=== PATIENT | female | born 1940 | race Caucasian/White ===

== ENCOUNTER 2016-06-06 00:24 | Emergency (ER) | payer MEDICARE, MEDICAID ==
[~2016-06-06] VITALS: Ht 163.8 cm; Wt 84.5 kg
[~2016-06-06 00:24] MED LIST: FENO145T19 PO; FLUT12AE6 INHALATION; KLO1T PO; LAMO100T2 PO; LEVO50TA6 PO; METO-274 PO; PANT20TA2 PO; RISP1TAB90 PO; RISP2TAB21 PO; TIOT4MIS2 INHALATION; TRIA10.8 NS; WARF3TAB7 PO
[2016-06-06 00:41] VITALS: BP 137/83; PULSE 97; RESP 16; O2SAT 96
--- NOTE | 2016-06-06 02:15 | ED.REPORT ---
HPI-General Illness Date of Service Jun 06, 2016 ED Provider: Gonzalez Eduardo MD This is a 75 year old female with a history of tardive dyskinesia, atrial fibrillation on warfarin, CKD stage III, osteoarthritis, HTN, asthma, thyroid disease, and lichenoid mucositis presenting to the emergency department due to difficulty swallowing that began four hours ago upon awakening. Pt woke up from sleep with dry mouth and tongue which impaired her ability to swallow. This improved after drinking water. Pt diagnosed with tardive dyskinesia in 01/2016. Denies shortness of breath, fever, chills, tongue swelling, throat swelling, nausea, or vomiting at this time. She had similar presentation 2 days ago. Nursing Notes Stated Complaint: TROUBLE SWALLOWING Chief Complaint: General Complaint Nursing Notes Reviewed: Yes Allergies: Coded Allergies: Penicillins (Verified Allergy, Severe, HIVES,SWELLING, 11/09/15) amoxicillin (Verified Allergy, Severe, HIVES,SWELLING, 11/09/15) azithromycin (Verified Allergy, Severe, HIVES,SWELLING, 11/09/15) atorvastatin (Verified Allergy, Unknown, UNKNOWN, 11/09/15) enalapril (Verified Allergy, Unknown, UNKNOWN, 11/07/15) naproxen (Verified Allergy, Unknown, 11/07/15) ibuprofen (Verified Adverse Reaction, Severe, RENAL INSUFFICIENCY, 11/07/15 ) Scheduled Benztropine Mesylate (Benztropine Mesylate) 1 Mg Tablet 1 MG PO BID Clonazepam (Clonazepam) 1 Mg Tablet 1 MG PO HS Fenofibrate Nanocrystallized (Fenofibrate) 145 Mg Tablet 145 MG PO DAILY Fluticasone/Salmeterol (Advair Hfa 230-21 Mcg Inhaler) 12 Gm Hfa.aer.ad 2 PUFFS INHALATION BID Lamotrigine (Lamotrigine) 100 Mg Tablet 150 MG PO QAM Lamotrigine (Lamotrigine) 100 Mg Tablet 100 MG PO QPM Levothyroxine (Levothyroxine) 50 Mcg Tablet 50 MCG PO DAILY Metoprolol Succinate ER (Metoprolol Succinate ER) 100 Mg Tab.er.24h 200 MG PO QAM Metoprolol Succinate ER (Metoprolol Succinate ER) 100 Mg Tab.er.24h 100 MG PO HS Pantoprazole DR (Pantoprazole DR) 20 Mg Tablet.dr 20 MG PO BID Risperidone (Risperdal) 1 Mg Tablet 1 MG PO MORNING Risperidone (Risperdal) 2 Mg Tablet 4 MG PO HS Tiotropium [place] (Spiriva Respimat) 4 Gm Mist.inhal 2 PUFFS INHALATION QAM Triamcinolone Acetonide (Nasacort) 10.8 Ml [place] 1 SPRAY NS HS Warfarin Sodium (Warfarin Sodium) 3 Mg Tablet 4.5 MG PO DAILY General Time Seen by MD: 01:58 Chief Complaint Other Hx Obtained From: Patient Arrived By: Walk-in Sudden in Onset?: Yes Onset Occurred: 1 - 4 hours ago Symptom Duration: Since onset Severity: Current: No pain currently Pertinent Negative: Pt denies other symptoms Recent Healthcare: No recent doctor visit, No recent hospitalization Similar Sx Previous: No Past Medical History Past Medical History Notes: 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 Physical Exam Vital Signs Vital Signs Date Time Temp Pulse Resp B/P Pulse Ox O2 Delivery O2 Flow Rate FiO2 06/06/16 05:01 35.6 97 16 137/83 96 06/06/16 00:41 35.6 97 16 137/83 96 Initial VS: Reviewed, Vital signs normal General/Constitutional: Well-developed, Well-nourished Head / Eyes: Atraumatic, Normocephalic, PERRL ENT: Mucous membranes moist, Conjunctiva normal, No scleral icterus Neck: Supple, Non-tender, Full range of motion Respiratory: Breath sounds normal, Clear to auscultation, No respiratory distress Cardiovascular: Regular rate & rhythm, Heart sounds normal, Intact distal pulses Abdomen / GI: Soft, Non-tender, No guarding, No rebound, No distention Extremities: Vascular intact, Neuro intact, No swelling, No tenderness Skin: Warm, Dry, No cyanosis Neurologic: Alert, Oriented, Nonfocal Psychiatric: Mood/affect normal, Behavior normal, Normal thought content Interpretation & Diagnostics Lab Results Interpretation Test 06/06/16 03:35 Hold Urine Received (Received) Re-Eval/Medical Decision Med Decision/Clinical Course 75-year-old female with a history of bipolar illness presents with tongue movements. She is unable to control these. They interfere with her sleep and make her tongue sore. These may be related to her psychiatric medications. She was given a dose of Cogentin 1 mg with good resolution of her symptoms. She will be given a prescription for the Cogentin last 3 to her next visit. Counseled Regarding: Diagnosis, Lab results, Need for follow-up, When/why to return to ED Discharge & Departure Primary Impression: Dystonic drug reaction Disposition: Home Discharge Condition All VS Reviewed: Yes Condition: Stable Additional Instructions: Benztropine (Cogentin) 1 mg once or twice daily as needed for symptoms. Talk to your regular doctor about further medication management. Referrals: Rajinder Cook DO (PCP) Scribe Attestation Portions of this note were transcribed by Dayan Ness. I, Dr. Eduardo personally performed the history, physical exam and medical decision-making; I reviewed and confirmed the accuracy of the information in the transcribed note. Signed by: martha Melendez. 06/05/2016, 06:00. Gonzalez Eduardo MD Jun 06, 2016 02:15 DAYAN NESS Jun 06, 2016 02:18
[2016-06-06] MEDS ORDERED: BENZ1TAB7 PO (04:55)
[2016-06-06 05:01] VITALS: BP 137/83; PULSE 97; RESP 16; O2SAT 96
== END 2016-06-06 05:04 | disposition home or self-care (01) ==
LOC: SED 00:24
DX: G24.02 Drug induced acute dystonia (principal); R68.2 Dry mouth, unspecified; K14.8 Other diseases of tongue; T43.95XA Adverse effect of unspecified psychotropic drug, initial encounter; Y93.89 Activity, other specified; Y92.89 Other specified places as the place of occurrence of the external cause; Y99.8 Other external cause status; I13.10 Hypertensive heart and chronic kidney disease without heart failure, with stage 1 through stage 4 chronic kidney disease, or unspecified chronic kidney disease; I48.91 Unspecified atrial fibrillation; N18.3 Chronic kidney disease, stage 3 (moderate); J45.909 Unspecified asthma, uncomplicated; E03.9 Hypothyroidism, unspecified; Z79.01 Long term (current) use of anticoagulants; Z88.0 Allergy status to penicillin; Z88.1 Allergy status to other antibiotic agents

== ENCOUNTER 2016-09-12 19:38 | Emergency (ER) | payer MEDICARE, MEDICAID ==
[~2016-09-12] VITALS: Ht 162.6 cm; Wt 89.1 kg
[~2016-09-12 19:38] MED LIST changes: +BENZ1TAB7 PO
[2016-09-12 19:40] VITALS: BP 185/86; RESP 20; O2SAT 99
--- NOTE | 2016-09-12 21:04 | ED.REPORT ---
HPI-Facial Injury Date of Service Sep 12, 2016 ED Provider: Diego Harry MD A 76 year old female with a history of tardive dyskinesia, atrial fibrillation on Warfarin, CKD stage III and hypertension presents to the ED due to bleeding from wound on her tongue. The pt bit her tongue during dinner and has been bleeding since, reporting that she has "gone through four washcloths." The pt checked her INR yesterday, which was 4.3. The pt is presently on doxycycline and prednisone for a mild asthma exacerbation that she has been experiencing since 08/27/2016. Nursing Notes Stated Complaint: BIT TONGUE Chief Complaint: ENT & Mouth Nursing Notes Reviewed: Yes ([facility], meds not reconciled - on warfarin) Allergies: Coded Allergies: Penicillins (Verified Allergy, Severe, HIVES,SWELLING, 09/12/16) amoxicillin (Verified Allergy, Severe, HIVES,SWELLING, 09/12/16) azithromycin (Verified Allergy, Severe, HIVES,SWELLING, 09/12/16) atorvastatin (Verified Allergy, Unknown, UNKNOWN, 09/12/16) enalapril (Verified Allergy, Unknown, UNKNOWN, 09/12/16) naproxen (Verified Allergy, Unknown, 09/12/16) risperidone (Verified Allergy, Unknown, 09/12/16) ibuprofen (Verified Adverse Reaction, Severe, RENAL INSUFFICIENCY, 09/12/16 ) Scheduled Benztropine Mesylate (Benztropine Mesylate) 1 Mg Tablet 1 MG PO BID Clonazepam (Clonazepam) 1 Mg Tablet 1 MG PO HS Fenofibrate Nanocrystallized (Fenofibrate) 145 Mg Tablet 145 MG PO DAILY Fluticasone/Salmeterol (Advair Hfa 230-21 Mcg Inhaler) 12 Gm Hfa.aer.ad 2 PUFFS INHALATION BID Lamotrigine (Lamotrigine) 100 Mg Tablet 150 MG PO QAM Lamotrigine (Lamotrigine) 100 Mg Tablet 100 MG PO QPM Levothyroxine (Levothyroxine) 50 Mcg Tablet 50 MCG PO DAILY Metoprolol Succinate ER (Metoprolol Succinate ER) 100 Mg Tab.er.24h 200 MG PO QAM Metoprolol Succinate ER (Metoprolol Succinate ER) 100 Mg Tab.er.24h 100 MG PO HS Pantoprazole DR (Pantoprazole DR) 20 Mg Tablet.dr 20 MG PO BID Risperidone (Risperdal) 1 Mg Tablet 1 MG PO MORNING Risperidone (Risperdal) 2 Mg Tablet 4 MG PO HS Tiotropium [place] (Spiriva Respimat) 4 Gm Mist.inhal 2 PUFFS INHALATION QAM Triamcinolone Acetonide (Nasacort) 10.8 Ml [place] 1 SPRAY NS HS Warfarin Sodium (Warfarin Sodium) 3 Mg Tablet 4.5 MG PO DAILY General Time Seen by Provider: 21:01 Chief Complaint Bleeding Hx Obtained From: Patient Arrived By: Walk-in Onset Occurred: 1 - 4 hours ago Symptom Duration: Since onset Recent Healthcare: No recent hospitalization, Recent doctor visit Similar Sx Previous: No Past Medical History Past Medical History Notes: 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 Respiratory: Denies: Non-productive cough, Shortness of breath Cardiovascular: Denies: Chest pain GI: Denies: Abdominal pain Physical Exam Initial Vital Signs Vital Signs (First) Date Time Temp Pulse Resp B/P Pulse Ox O2 Delivery O2 Flow Rate FiO2 09/12/16 19:40 36.0 92 20 185/86 99 Room Air Initial VS: Reviewed, Vital signs normal Head / Eyes: Atraumatic, Normocephalic, PERRL, EOMI ENT: Airway patent, Mucous membranes moist small 1 mm wound on the anterior surface of the tongue, continuously oozing blood no laceration or airway compromise Neck: Atraumatic, Supple, Full range of motion Neurologic: Oriented X3, Speech NL, No motor deficits, No sensory deficits General/Constitutional: Awake, Alert Respiratory / Chest: Atraumatic, Breath sounds = bilat, No respiratory distress Interpretation & Diagnostics Lab Results Interpretation Result Diagram: 09/12/162119 Test 09/12/16 21:20 White Blood Count 14.1th/mm3 (3.8-10.1) Red Blood Count 3.85mil/mm3 (3.90-5.20) Hemoglobin 11.2g/dL (12.0-15.6) Hematocrit 36.5% (35.0-46.0) Mean Corpuscular Volume 94.8fL (81-100) Mean Corpuscular Hemoglobin 29.1pg (27.0-35.0) Mean Corpuscular Hemoglobin Concent 30.7% (32.0-37.0) Red Cell Distribution Width 16.3% (12.3-15.4) Platelet Count 276bil/L (150-400) Neutrophils (%) (Auto) 79.5% (40-74) Lymphocytes (%) (Auto) 11.6% (14-46) Monocytes (%) (Auto) 7.4% (4-12) Eosinophils (%) (Auto) 0.1% (0-5) Basophils (%) (Auto) 0.1% (0-3) Prothrombin Time 33.3sec (8.1-12.5) Prothromb Time International Ratio 3.04ratio Hold Rai Top Tube Received (Received) Lab Results Interpretation: CBC nonspecific leukocytosis INR therapeutic, down from her reported INR greater than 4 yesterday Re-Eval/Medical Decision Med Decision/Clinical Course This is a 76-year-old female on Coumadin for atrial fibrillation who is tired of dyskinesia and bit her tongue while chewing today, and he could not get the bleeding to stop. She also has a history of some mild asthma exacerbation is on doxycycline which she thinks is what increased her INR-she had a check TSH was elevated greater than 4, so held her Coumadin. She is on albuterol and prednisone. On exam she has a small 1-2 mm wound of the tongue, not requiring repair-but it is oozing continuously. She has mild bronchospasm as well, but not visible distress. She had topical bupivacaine with epinephrine applied initially with inadequate results, and then topical transatlantic acid within administered. An INR recheck demonstrates her INRs come down to 3. Her counts are normal. And her bleeding stopped. She received albuterol. She feels much improved. She is up-to-date on tetanus. I am not finding indication for additional therapy. She was maintained for several hours and remained hemostatic, and so is being discharged in improved condition. Source of Hx: Old records Re-Evaluation/Progress : Time of Eval: 22:43 Patient Status: Condition improved Re-Evaluation/Progress Note: Pt rechecked, whose tongue has stopped bleeding following medication administration. The pt has a mild wheeze and is requesting another albuterol treatment. The diagnosis and plan for discharge are discussed. The pt understands and agrees with the plan. All questions are addressed at this time. Differential Diagnosis: Positive: Laceration, Tongue injury, Negative: Abrasion, Blow out fracture, Burn, 1st degree, Burn, 2nd degree, Burn, 3rd degree, Closed head injury, Epistaxis, anterior, Epistaxis, posterior , Gun shot wound, Septal hematoma, Stab wound Counseled Regarding: Diagnosis, Need for follow-up, When/why to return to ED Discharge & Departure Impression: Primary Impression: Tongue laceration Encounter type: initial encounter Qualified Code: S01.512A - Laceration without foreign body of oral cavity, initial encounter Additional Impressions: Asthma Asthma severity: mild intermittent Asthma complication type: uncomplicated Qualified Code: J45.20 - Mild intermittent asthma, uncomplicated Anticoagulated on Coumadin Disposition: Home Discharge Condition All VS Reviewed: Yes Condition: Stable Additional Instructions: 1. The tongue laceration was small and does not require require repair, but medications to stop the bleeding were administered. The wound should heal on its own. 2. Your INR is down to 3.0 today. 3. Continue your asthma medications. 4. Return if new or worsening symptoms. Referrals: Rajinder oCok DO (PCP) Isaias Attestation Portions of this note were transcribed by Jeannette Ugalde. I, Dr. Harry personally performed the history, physical exam and medical decision-making; I reviewed and confirmed the accuracy of the information in the transcribed note. Signed by: Isaias Patton, 09/12/2016 and 230. copies to: Rajinder Cook Matthew F MD Sep 12, 2016 21:04 JEANNETTE UGALDE Sep 12, 2016 21:12
[2016-09-12] MEDS ORDERED: Tranexamic Acid 100 mg/mL 10 mL Inj TOPICAL ONE (21:10)
[2016-09-12] MEDS ORDERED: Albuterol 2.5 mg/3 mL Inhalation Solution NEB ONE ×2 (21:15→22:45)
[2016-09-12 21:35] LABS: BASOPHILS % (AUTO) 0.1 % (0-3); EOSINOPHILS % (AUTO) 0.1 % (0-5); MONOCYTES % (AUTO) 7.4 % (4-12); Mean Corpuscular Hemoglobin 29.1 pg (27.0-35.0); Mean Corpuscular Volume 94.8 fL (81-100); NEUTROPHILS % (AUTO) 79.5 % (40-74); Platelet Count 276 bil/L (150-400)
[2016-09-12 21:56] LABS: INR 3.04 ratio
[2016-09-12 22:26] VITALS: PULSE 97; RESP 20; O2SAT 97
[2016-09-12 22:46] VITALS: PULSE 100; RESP 18; O2SAT 97
[2016-09-12 23:12] VITALS: BP 136/85; PULSE 93; RESP 20; O2SAT 97
== END 2016-09-12 23:13 | disposition home or self-care (01) ==
LOC: SED 19:38
DX: S01.512A Laceration without foreign body of oral cavity, initial encounter (principal); J45.20 Mild intermittent asthma, uncomplicated; X58.XXXA Exposure to other specified factors, initial encounter; Y93.89 Activity, other specified; Y92.89 Other specified places as the place of occurrence of the external cause; Y99.8 Other external cause status; I13.10 Hypertensive heart and chronic kidney disease without heart failure, with stage 1 through stage 4 chronic kidney disease, or unspecified chronic kidney disease; I48.91 Unspecified atrial fibrillation; N18.3 Chronic kidney disease, stage 3 (moderate); F31.9 Bipolar disorder, unspecified; Z79.01 Long term (current) use of anticoagulants; Z88.0 Allergy status to penicillin; Z88.1 Allergy status to other antibiotic agents; Z88.8 Allergy status to other drugs, medicaments and biological substances
CPT/HCPCS: 36415; 85025; 85610; 86850; 94640; 94664; 99284; J7613

== ENCOUNTER → 2016-11-22 | Day surgery (SDC) | payer MEDICARE, MEDICAID ==
[~2016-11-22] VITALS: Ht 162.6 cm; Wt 90.7 kg
[~2016-11-22] MED LIST changes: +0.9% Sodium Chloride 1,000 ML IV SCH; +ALBU8.5H2 INHALATION; +FENO160T PO; +FLUT12AE4 IH; +HYDR200T5 PO; +Lactated Ringer's 1,000 ML IV ONE; -METO-274 PO; +METO-394 PO; +Propofol 10,000 mCg/mL 20 mL Inj ONE; -RISP1TAB90 PO; -RISP2TAB21 PO; +Sodium Chloride LOK Flush 10 mL Syringe IV PRN; -TRIA10.8 NS; +fentaNYL-PF 50 mCg/mL 2 mL Inj IVPUSH PRN
[2016-11-22 09:02] VITALS: BP 178/99; PULSE 77; RESP 14; O2SAT 93
--- NOTE | 2016-11-22 09:28 | PCM.HPANE ---
Patient Data Date of Service: Nov 22, 2016 Surgeon Admitting Provider: Attending Provider:Ahsan Coburn MD Primary Care Physician:Rajinder Cook DO Other Provider: Reason for Visit Diarrhea, Abdominal Cramping Ht/WT & BMI Height (Feet): 5 Height (Inches): 4 Weight (Kilograms): 90.72 Body Mass Index 34.00 Allergies Coded Allergies: Penicillins (Verified Allergy, Severe, HIVES,SWELLING, 11/21/16) amoxicillin (Verified Allergy, Severe, HIVES,SWELLING, 11/21/16) azithromycin (Verified Allergy, Severe, HIVES,SWELLING, 11/21/16) atorvastatin (Verified Allergy, Unknown, UNKNOWN, 11/21/16) enalapril (Verified Allergy, Unknown, UNKNOWN, 11/21/16) naproxen (Verified Allergy, Unknown, 09/12/16) risperidone (Verified Allergy, Unknown, 11/21/16) ibuprofen (Verified Adverse Reaction, Severe, RENAL INSUFFICIENCY, 11/21/16 ) Uncoded Allergies: RESPERIDOL (Allergy, Unknown, CANT TOLERATE, 11/22/16) Past Anesthesia History Anesthesia History: Denies:: Abnormal Airway, Anesthesia Reactions, Difficult Intubation, Fam Anesthesia Reaction, Fam Malignant Hypertherm, Malignant Hyperthermia Diabetes History Hx Diabetes?: No MRSA MRSA: No Medications Blood Thinner: Coumadin Last Dose Blood Thinner: Nov 16, 2016 Hypertension Medication: Yes Home Meds Incl Beta Mc: Yes Date Beta Mc Taken: Nov 21, 2016 Time Beta Mc Taken: 2200 Previous Beta Mc Dose >24: Previous Dose <24 Hours Active Scripts Warfarin Sodium 3 Mg Tablet4.5 Mg PO DAILY 30 Days Ref 0 Prov:Kartik Bah MD 10/31/15 Fluticasone/Salmeterol (Advair Hfa 230-21 Mcg Inhaler)12 Gm Hfa.aer.ad2 Puffs INHALATION BID 30 Days Prov:Kartik Bah MD 10/31/15 Tiotropium [place] (Spiriva Respimat)4 Gm Mist.inhal2 Puffs INHALATION QAM 30 Days Prov:Kartik Bah MD 10/31/15 Metoprolol Succinate ER 100 Mg Tab.er.[id number] Mg PO HS 30 Days Prov:Kartik Bah MD 10/31/15 Metoprolol Succinate ER 100 Mg Tab.er.46a496 Mg PO QAM 30 Days Prov:Kartik Bah MD 10/31/15 Levothyroxine 50 Mcg Nhzvkn26 Mcg PO DAILY 30 Days Prov:Kartik Bah MD 10/31/15 Lamotrigine 100 Mg [id number] Mg PO QPM 30 Days Prov:Kartik Bah MD 10/31/15 Lamotrigine 100 Mg [id number] Mg PO QAM 30 Days Prov:Kartik Bah MD 10/31/[address] 20 Mg Tablet.dr20 Mg PO BID 30 Days Prov:Kartik Bah MD 10/31/15 Reported Medications Albuterol HFA (Proair HFA)8.5 Gm Hfa.aer.ad2 Puffs INHALATION Q4H #1 INHALER 11/22/16 Hydroxychloroquine Sulfate 200 Mg [id number] Mg PO DAILY #30 TABLET Ref 0 11/21/16 Fenofibrate (T[place]or)145 Mg [id number] Mg PO DAILY 30 Days Ref 0 11/21/16 Discontinued Scripts Benztropine Mesylate 1 Mg Tablet1 Mg PO BID #20 TABLET Ref 0 Prov:Gonzalez Eduardo MD 06/06/16 Clonazepam 1 Mg Tablet1 Mg PO HS 30 Days Prov:Kartik Bah MD 10/31/15 Risperidone (Risperdal)2 Mg Tablet4 Mg PO HS 30 Days Prov:Kartik Bah MD 10/31/15 Risperidone (Risperdal)1 Mg Tablet1 Mg PO MORNING 30 Days Prov:Kartik Bah MD 10/31/15 Triamcinolone Acetonide (Nasacort)10.8 Ml Spray1 [place] NS HS 30 Days Prov:Kartik Bah MD 10/31/15 History History of ENT Problems?: Yes HEENT History: Positive for:: Sinus Problem (sinusitis ) Denies:: Abnormal Airway Difficult Intubation Dysphagia Hearing Problem Denture Type: Partial- Upper Teeth Condition: Within Normal Limits Hx of Heart Problems?: Yes Cardiovascular History: Positive for:: Atrial Fibrillation Edema (current 05/18/15 INTERMITTANT PEDAL EDEMA) Hypertension Irregular Heartbeat (afib, rvr) Valvular Heart Disease Denies:: AICD Cardiac Surgery Chest Pain Congestive Heart Failure Heart Murmur Pacemaker Rheumatic Fever Thrombophlebitis Other History/Comments Mild AI, Mild MR Hx of Respiratory Problem?: Yes Respiratory History: Positive for:: Asthma Cough (PRODUCTIVE) Dyspnea (current 05/18/15 no 02 requirements ) Use of C-PAP Machine (LENNIE+ NO CPAP SLEEP STUDY 10/2010) Denies:: COPD Chest Surgery Emphysema Hemoptysis Pneumonia Tuberculosis Other History/Comment Asthma/COPD, non-smoker, mild subacute persistent cough w/u for PNA last week reportedly neg. thought to have had an asthmatic exacerbation for which she has completed a course of doxycycline and is on the last couple days of a prednisone course. Hx Neurologic Problems?: Yes Neurological History: Positive for:: Headaches (current 05/18/15) Denies:: Alzheimer's Disease CVA Dementia Dizziness Parkinson's Disease Seizures Other History/Comments Tardive dyskinesia Hx of GI Problems?: Yes Gastrointestinal History: Positive for:: Gastroesphageal Reflux Denies:: Hepatitis Liver Disease Other History/Comment GERD well controlled Hx of Problems?: Yes Genitourinary History: Denies:: HX of Hemodialysis (HX OF RENAL INSUFFICIENCY stage 3 ) Kidney Stones Urinary Tract Infection HX of Peritoneal Dialysis: No Other History/Comment CKD bl cr ~2 Female Hx: Positive for:: Endometriosis (S/P LAP FOR ENDOMETRIOSIS X2) Denies:: Currently Pelvic Inflammatory Problems with Breasts? Skin History: Denies:: History Skin Disorders? Pressure Ulcers Hx Musculoskeletal Problems?: Yes Musculoskeletal History: Denies:: Back Injury (C/O NECK PAIN- current 05/18/15) Fibromyalgia Joint Replacement Musculoskeletal Trauma Hx of Psycho/Social Problems?: Yes Psycho Social History: Positive for:: Anxiety Bipolar Disorder Denies:: Hx Depression Suicide Attempt Hx Surgeries?: Yes (2 ENDOMETRIAL SURGERIES BOWEL OBSTRUCTION ) Hx Any Other Health Problems?: Yes Other History: Positive for:: Hospitalization Thyroid Disease (hypothyroidism- on levothyroxine ) Denies:: Cancer Endocrine Disease History Blood Transfusions: Denies:: Blood Transfuse Reaction Blood Transfusions Hx Diabetes: No Hx Alcohol Use: NoHx Substance Use: No Smoking Status: Never Smoker Have You Smoked inLast 12 mo: No Stop/Bang Treated for Sleep Apnea?: Yes Do You Have a CPAP Machine?: No LENNIE Category 4 OutPt Procedure: Yes Risk Assessment Category Category 1A: Patient has history of documented sleep apnea, and HAS NOT received any narcotic, sedative or anesthesia administration during this stay. Category 1B: Patient has history of documented sleep apnea, and HAS received any narcotic , sedative or anesthesia administration during this stay Category 2: Patient has SUSPECTED Obstructive Sleep Apnea, and HAS received any narcotic , sedative or anesthesia administration during this stay. Category 3: Patient has SUSPECTED Obstructive Sleep Apnea and HAS NOT received narcotic, sedative or anesthesia administration during this stay. Category 4: Outpatient in Procedural Areas with known sleep apnea or who screen positive for High Risk via the STOP/BANG questionnaire. Exam Exam Vital Signs Vital Signs Date Time Temp Pulse Resp B/P Pulse Ox O2 Delivery O2 Flow Rate FiO2 11/22/16 09:02 77 14 178/99 93 Room Air General Appearance: Alert HEENT/AIRWAY: MP 2 Lungs: Normal Air Movement, Rhonchorus (L lower lung field) Heart: Exam Unremarkable, Regular Rate/Rhythm, No Murmurs/Rubs/Gallops Plan Impression Patient chart reviewed, patient interviewed and anesthestic plan with risks, benefits, and alternatives discussed, and informed consent obtained. NPO per Anesth. Guidelines: Yes ASA Physical Status: ASA3 Severe Disease Anesthetic Plan: MAC Bene/Risks/Altern/Consents: Yes HP Complete Prior to Induction: Yes Other Discussed elevated risk of perioperative complications, especially pulmonary given her recent pulmonary illness, discussed c/f pulmonary complications and time course for persistent reactivity for several weeks. She would like to proceed given her prep and this process having been present and improving after several months of low level symptoms. Marco Sharma MD Nov 22, 2016 09:28
[2016-11-22 10:36] VITALS: BP 147/71; PULSE 74; O2SAT 95
[2016-11-22 10:46] VITALS: BP 180/92; PULSE 79; O2SAT 100
[2016-11-22 10:58] VITALS: BP 167/82; PULSE 78; O2SAT 97
[2016-11-22 11:06] VITALS: BP 142/74; PULSE 87; O2SAT 97
--- NOTE | 2016-11-22 12:39 | PCM.ANEP1 ---
Post Anesthesia PACU Phase 1 Assessment Date of Service: Nov 22, 2016 Vital Signs Vital Signs Date Time Temp Pulse Resp B/P Pulse Ox O2 Delivery O2 Flow Rate FiO2 11/22/16 11:06 87 142/74 97 Room Air 11/22/16 10:58 78 167/82 97 Room Air 11/22/16 10:46 79 180/92 100 Room Air 11/22/16 10:36 36.4 74 147/71 95 Room Air 11/22/16 09:02 77 14 178/99 93 Room Air Anesthetic Administered: MAC Level of Alertness: Awake, talking Pain: No Nausea or Vomiting: No CV Function & Hydration Stable: Yes Airway Device: Oxygen Delivery: Room Air Lungs: Normal Air Movement, Rhonchorus (L lower lung field) PACU Phase 2 Assessment Complications: No Follow up Care: No Patient Instructions Provided: N/A (Respiratory status at baseline, breathing comfortably) Marco Sharma MD Nov 22, 2016 12:39
--- NOTE | 2016-11-22 14:05 | ENDO ---
[address] [address] ENDOSCOPY PROCEDURE PATIENT: OLIVERIO RACHEL : 1940 MR#: [id number] ADMIT: 11/22/2016 JOB ID: [id number] DATE OF SERVICE: 11/22/2016 TYPE OF OPERATION: 1. Esophagogastroduodenoscopy with biopsy. 2. Colonoscopy with biopsy. PREOPERATIVE DIAGNOSIS(ES): 1. Diarrhea. 2. Abnormal celiac panel. POSTOPERATIVE DIAGNOSIS(ES): 1. Small internal hemorrhoids. 2. Yellowish plaque seen throughout the entire esophagus, status post biopsy and brushings. ANESTHESIA: Monitored anesthesia care. COMPLICATIONS: None. BLOOD LOSS: Minimal. DESCRIPTION OF PROCEDURE: After risks and benefits explained to the patient, informed consent was obtained. After anesthesia administered, upper endoscope was then inserted into mouth, intubating through the esophagus, stomach and second portion of duodenum. Mucosa carefully examined. After procedure was done, the scope withdrawn and procedure terminated. Colonoscope was then inserted from the rectum to the cecum. Mucosa carefully examined. Prep of the patient was excellent. After the procedure done, the scope withdrawn and procedure terminated. FINDINGS: Upon inspection of the esophagus, there appeared to be yellowish plaques that were seen throughout the entire esophagus. The patient is currently on prednisone for asthma. Biopsies and brushings were done in the mid and distal esophagus. Upon entering Z-line located 40 cm from incisors. Upon entering stomach, the stomach appeared normal without masses, ulcers, or lesions. Retroflexion was normal. Duodenal bulb, first and second portions normal. Biopsies taken of the duodenum, antrum, body, mid and distal esophagus. Upon inspection of the anus, no masses, hemorrhoids, ulcers, or fissures that were seen. Throughout the entire examination, several attempts were made to get into the terminal ileum which were unsuccessful. Random biopsies taken throughout the entire colon. Retroflexion showed small internal hemorrhoids. IMPRESSION: 1. Small internal hemorrhoids. 2. Large plaque seen throughout the entire esophagus, status post biopsy and brushings to rule out arpita and fungal. RECOMMENDATIONS: Await pathology results. Follow up in GI clinic as needed.
--- NOTE | 2016-11-26 19:06 | PATH ---
SURGICAL PATHOLOGY Attending Physician:Ahsan Coburn MD CASE STATUS: Signed Out PATIENT NAME: OLIVERIO RACHEL PID: [id number] : 1940 DATE COLLECTED:11/22/2016 19:50 SPECIMEN: 1: Esophagus, Biopsy 2: Esophagus, Biopsy 3: Duodenum, Biopsy 4: Stomach, Antrum, Biopsy 5: Gastric, Biopsy 6: Colon, Biopsy CLINICAL HISTORY: 1). MID ESOPHAGEAL BIOPSY, DO FUNGAL STAIN 2). DISTAL ESOPHAGEAL BIOPSY, DO FUNGAL STAIN 3). DUODENUM BIOPSY 4). ANTRUM BIOPSY 5). BODY BIOPSY 6). RANDOM COLON FINAL DIAGNOSIS: 1. Mid-Esophagus, Biopsy: Squamous mucosa with active esophagitis. Positive for fungal and yeast organisms consistent with Gabrielle species on PAS stain. Negative for dysplasia or malignancy. 2. Distal Esophagus, Biopsy: Squamous mucosa with no diagnostic abnormality. Negative for fungal organisms on PAS stain. Negative for dysplasia or malignancy. 3. Duodenum, Biopsy: Duodenal mucosa with no diagnostic abnormality. Negative for active inflammation, features of sprue, dysplasia or malignancy. 4-5. Gastric Antrum, Body, Biopsies: Gastric antral and body mucosa with no diagnostic abnormality. No evidence of Helicobacter organisms on H&E stain. Negative for intestinal metaplasia, dysplasia or malignancy. 6. Random Colon, Biopsy: Colonic mucosa with no diagnostic abnormality. Negative for active of microscopic colitis. Negative for granulomata, dysplasia or malignancy. ICD10: B37.81 GROSS DESCRIPTION: The specimen is received in six formalin filled containers labeled with the patient's name. 1). The specimen is labeled "mid esophageal" and consists of 2 tiny portions of tissue which aggregate to 0.1 x 0.1 x 0.1 CM. The specimen is entirely submitted in cassette 1A. 2). The specimen is labeled "distal esophagus" and consists of 2 portions of tissue which aggregate to 0.2 x 0.2 x 0.2 CM. The specimen is entirely submitted in cassette 2A. 3). The specimen is labeled "duodenal" and consists of a 0.3 x 0.2 x 0.2 CM portion of tissue which is entirely submitted in cassette 3A. 4). The specimen is labeled "antrum" and consists of 2 portions of tissue which aggregate to 0.3 x 0.3 x 0.2 CM. The specimen is entirely submitted in cassette 4A. 5). The specimen is labeled "body" and consists of 2 portions of tissue which aggregate to 0.3 x 0.3 x 0.2 CM. The specimen is entirely submitted in cassette 5A. 6). The specimen is labeled "random colon" and consists of 5 portions of tissue which aggregate to 0.3 x 0.3 x 0.2 CM. The specimen is entirely submitted in cassette 6A. 11/22/2016TX MICRO DESCRIPTION: Part 1: A PAS stain was performed to evaluate for fungal organisms and is positive for fungal and yeast elements consistent with Colin species. Part 2: A PAS stain was performed to evaluate for fungal organisms and is negative. The control stain shows appropriate reactivity. ICD-9 CODES: CPT CODES: 1: 11934, 04118 2: 55921, 86319 3: 79208 4: 33263 5: 38448 6: 24035 Electronically Signed Out Diego Cooper MD, Ph.D. [facility] Pathology [facility], [place] [address] Technical component performed at [facility], [facility] [address], [place], [address]
== END | disposition home or self-care (01) ==
LOC: END 00:48
PROVIDERS: ATTEND Internal Medicine Gastroenterology
DX: R19.7 Diarrhea, unspecified (principal); K64.8 Other hemorrhoids; B37.81 Candidal esophagitis; K21.9 Gastro-esophageal reflux disease without esophagitis; J45.909 Unspecified asthma, uncomplicated; F31.9 Bipolar disorder, unspecified; M06.9 Rheumatoid arthritis, unspecified; E78.00 Pure hypercholesterolemia, unspecified; E03.9 Hypothyroidism, unspecified; G47.33 Obstructive sleep apnea (adult) (pediatric); I12.9 Hypertensive chronic kidney disease with stage 1 through stage 4 chronic kidney disease, or unspecified chronic kidney disease; N18.9 Chronic kidney disease, unspecified; I48.0 Paroxysmal atrial fibrillation; Z79.01 Long term (current) use of anticoagulants; Z79.52 Long term (current) use of systemic steroids
CPT/HCPCS: 43239; 45380; 87101; 87220; J2704; J7120